=== PATIENT | female | born 1995 | race Caucasian/White ===

== ENCOUNTER 2023-10-10 03:12 | Inpatient (IN) ==
[2023-10-10] MEDS ORDERED: LIDOCAINE 1% LOCAL 20 ML VIAL INFIL PRN (03:56)
[2023-10-10] MEDS: LACTATED RINGER'S 1,000 ML IV PRN (04:05)
--- NOTE | 2023-10-10 04:25 | History & Physical Report ---
Date of Service October 10, 2023 Assessment & Plan (1) Normal labor: Plan: IUP at term in labor GBS-negative requesting epidural analgesia anticipate vaginal History of Present Illness Primary Care Provider: NO PCP Patient is a 28 yo EDC 10/20/23 who presents at 39 3/7 weeks with regular contractions since 0200 this morning. (-)SPROM (-) GBS otherwise uncomplicated. Allergies Allergy/AdvReac Type Severity Reaction Status Date / Time azithromycin Allergy Nausea Verified 10/07/23 11:15 Home Medications Medication Instructions Recorded Confirmed Type vit 168-iron 27 mg-folic cap PO 05/15/23 10/07/23 History acid 800 mcg-omega3 235 mg capsule (One-A-Day -1) RSV vac, preF A and preF B(PF) 120 0.5 ml IM ONCE #1 ea 09/04/23 10/07/23 Rx mcg/0.5 mL IM solution (Abrysvo) Patient History Surgical History S/P LEEP of cervix Family History (Updated 05/15/23 @ 10:57 by Edie Hanson) Aunt Breast cancer Father Diabetes Hypertension Grandfather Lymphoma Social History (Updated 05/15/23 @ 10:58 by Edie Hanson) Smoking Status: Never smoker Do You Dip or Chew Tobacco: No; Hx Alcohol Use: No Hx Substance Use: Yes Last Used Substance Other:: 11/2022 Preferred Language: Sami Communication Ability: Effective Roof Bolter Operator Required: No Beliefs That Will Affect Care: None marital status: marital status details: Alverto (29) [phone] Current Living Situation: Spouse Current Living Situation Comment: lives with spouse, 1 dog. current occupational status: employed current occupation: Account management Other Information That Helps Us Care for You: No Feels Safe at Home: Yes Safety Concerns: Feels Safe At This Time Assistive Devices: None Review of Systems All systems reviewed & are unremarkable except as noted in HPI & below Physical Exam Constitutional: WD/WN, vitals as above Psychiatric: A+Ox3, euthymic affect Genitourinary: Manual OB Exam: + cervical dilation 5 cm, + cervical effacement 100% and + station -1 OB Exam Monitor Tracing: + external FHT monitor used, + external uterine monitor used, + category I and + normal FHT variability Results & Data Vital Signs (Past 12 Hours) Vital Signs Temp Pulse Resp BP 10/10/23 03:29 97.9 F 20 10/10/23 03:27 93 H 114/75 Code Status & VTE Plan VTE Prophylaxis Plan VTE Prophylaxis will be ordered: No Coding Level of Care Code None Diagnoses Normal labor O80; Z37.9
[2023-10-10 05:21] LABS: Hematocrit (blood only) 37.1 % (37.0-47.0); Hemoglobin 13.2 g/dl (12.0-16.0); Mean Corpuscular Hemoglobin 30.6 pg (25.0-34.0); Mean Corpuscular Hgb Conc 35.6 g/dL (32.0-36.0); Mean Corpuscular Volume 86.1 fL (80.0-100.0); Mean Platelet Volume 10.6 fL (9.4-12.4); Platelet Count 253 K/uL (130-400); RDW Coefficient of Variation 12.4 % (11.5-14.5); RDW Standard Deviation 38.6 fL (36.4-46.3); Red Blood Count 4.31 M/uL (4.20-5.40); White Blood Count 13.35 K/ul (4.8-10.8)
[2023-10-10] MEDS ORDERED: BUPIVACAINE 0.25% PF 30 ML VIAL EPI PRN (05:33)
[2023-10-10] MEDS ORDERED: fentaNYL citrate PF 100 MCG/2 ML VIAL EPI PRN (05:33)
[2023-10-10] MEDS ORDERED: diphenhydrAMINE 50 MG/ML VIAL IV PRN (05:33)
[2023-10-10] MEDS ORDERED: NALBUPHINE HCL 5 MG in SYRINGE 0 ML IV PRN (05:33)
[2023-10-10] MEDS ORDERED: LIDOCAINE 2% MPF LOCAL 5 ML VIAL EPI PRN (05:33)
[2023-10-10] MEDS ORDERED: ROPIVACAINE 0.5% PF 5 MG/ML 20 ML VIAL EPI PRN (05:33)
[2023-10-10] MEDS ORDERED: NALOXONE HCL 0.4 MG/1 ML VIAL/CARP IV PRN (05:33)
[2023-10-10] MEDS ORDERED: NALOXONE HCL 1 MG in SODIUM CHLORIDE 0.9% 1,000 ML IV PRN (05:33)
[2023-10-10] MEDS ORDERED: fentANYL 2 MCG/ML BUPIVacaine 0.125%-NSS 100ML BAG EPI PRN (05:33)
[2023-10-10] MEDS ORDERED: SODIUM CHLORIDE 0.9% PF INJ 10 ML VIAL EPI PRN (05:33)
--- NOTE | 2023-10-10 05:37 | Anesthesiology Consultation ---
Date of Service October 10, 2023 Assessment & Plan Chart Review Chart Review: Patient NOT seen in Pre Admission Testing and Acceptable Risk for Labor Epidural Consults Requested none ASA ASA2 Proposed Anesthesia Anesthesia Type: Labor Epidural Risk / Benefits Reviewed With: PT / POA / Parent / Guardian, Accepts Plan and Informed Consent Obtained History Height/Weight Height: 5 ft 5 in Weight: 91.626 kg Allergies Allergy/AdvReac Type Severity Reaction Status Date / Time azithromycin Allergy Nausea Verified 10/07/23 11:15 Medications Home Medications Medication Instructions Recorded Confirmed Last Taken vit 168-iron 27 mg-folic cap PO 05/15/23 10/07/23 Unknown acid 800 mcg-omega3 235 mg capsule (One-A-Day -1) RSV vac, preF A and preF B(PF) 120 0.5 ml IM ONCE #1 ea 09/04/23 10/07/23 Unknown mcg/0.5 mL IM solution (Abrysvo) Active Medications Generic Name Dose Route Start Last Admin Trade Name Freq PRN Reason Stop Dose Admin Lactated Ringer's 1,000 mls @ 125 mls/hr 10/10/23 03:56 10/10/23 05:14 Lr IV 10/12/23 03:55 125 mls/hr .Q8H PRN Administration L&D Protocol Protocol NPO Date Last Intake of Fluids: 10/10/23 Time Last Intake of Fluids: 04:00 Date Last Intake of Solids: 10/09/23 Time Last Intake of Solids: 18:00 Exercise / Class Metabolic Activity II 4-5 Yardwork/Stairs/Walk up hill Past Family History Family History Aunt Breast cancer Father Diabetes Hypertension Grandfather Lymphoma Past Surgical History Surgical History S/P LEEP of cervix Past Anesthesia History No Hx of Anesthesia Complications and No Family Hx of Anesthesia Complications History of PONV No Hx of Motion Sickness and History of PONV Social History Smoking Status: Never smoker Do You Dip or Chew Tobacco: No Hx Alcohol Use: No Hx Substance Use: Yes substance use type: marijuana Last Used Substance Other:: 11/2022 Review of Systems ROS Unobtainable: All systems reviewed & are unremarkable except as noted in HPI & below Physical Exam Vital Signs Last Vital Signs Temp 36.6 C 10/10/23 03:29 Pulse 91 H 10/10/23 05:34 Resp 20 10/10/23 03:29 BP 121/73 10/10/23 05:04 Pulse Ox 100 10/10/23 05:34 ENMT Mouth: no TMJ abnormality Thyromental Distance: > or= 3.5 Finger Breadths Mallampati Class: II Neck normal visual inspection and trachea midline; neck extension not limited Respiratory normal respiratory effort Auscultation: lungs clear to auscultation bilaterally Cardiovascular Rate/Rhythm: regular rate and regular rhythm Heart Sounds: no murmur Musculoskeletal Spine: normal cervical ROM Extremities: full ROM of extremities Neurologic moves all extremities Psychiatric Orientation: alert and oriented x 3 Testing Laboratory Results 10/10/23 04:32
[2023-10-10] MEDS: fentANYL 2 MCG/ML BUPIVacaine 0.125%-NSS 100ML BAG ONE (05:48)
[2023-10-10] MEDS: LIDOCAINE 2%/EPINEPHRINE 1:200,000 20 ML PF ONE (05:49)
[2023-10-10] MEDS: BUPIVACAINE 0.25% PF 30 ML VIAL ONE (05:51)
[2023-10-10] MEDS: fentaNYL citrate PF 100 MCG/2 ML VIAL ONE (05:51)
[2023-10-10] MEDS: SODIUM CHLORIDE 0.9% PF INJ 10 ML VIAL ONE (05:53)
[2023-10-10] MEDS: ePHEDrine sulfate 50 MG/ML AMP ONE (05:53)
[2023-10-10] MEDS: LIDOCAINE 2%/EPINEPHRINE 1:200,000 20 ML PF EPI STA (06:05)
[2023-10-10] MEDS: BUPIVACAINE 0.25% PF 30 ML VIAL EPI STA (06:05)
[2023-10-10] MEDS: fentaNYL citrate PF 100 MCG/2 ML VIAL EPI STA (06:05)
[2023-10-10] MEDS: SODIUM CHLORIDE 0.9% PF INJ 10 ML VIAL EPI STA (06:06)
[2023-10-10] MEDS: ePHEDrine sulfate 50 MG/ML AMP IV PRN (06:20)
[2023-10-10] MEDS: OXYTOCIN 30 UNITS/NSS 30 UNITS/500 ML BAG IV PRN (08:19)
[2023-10-10] MEDS ORDERED: DIPHTHER/TETAN/PERTUS Vaccine (Tdap, Adol/Adult) 0.5mL IM ONE (08:59)
[2023-10-10] MEDS ORDERED: ACETAMINOPHEN 325 MG TAB PO PRN (08:59)
[2023-10-10] MEDS ORDERED: HYDROCORTISONE ACETATE 25 MG SUPP PR PRN (08:59)
[2023-10-10] MEDS ORDERED: bisacodyL 10 MG SUPP PR PRN (08:59)
[2023-10-10] MEDS ORDERED: OXYTOCIN 30 UNITS/NSS 30 UNITS/500 ML BAG IV PRN (08:59)
[2023-10-10] MEDS ORDERED: MEASLES, MUMPS & RUBELLA VIRUS VACCINE (MMR) VIAL SQ ONE (08:59)
--- NOTE | 2023-10-10 09:50 | Delivery Summary ---
Vaginal Delivery Summary Date of Service October 10, 2023 Vaginal Delivery Summary and 2nd Degree LAC Patient is a 28-year-old G1, P0 female EDC of 10/14/2023 who presents at 39-3/7 weeks in active labor. She requested epidural analgesia which was effective. She progressed to full dilation and pushed effectively over intact perineum for delivery of a viable male infant. After the head was delivered the rest the delivered without maternal effort. He was placed on mother's abdomen for further attention and drying. After 1 minute, cord was clamped and cut. The placenta was then expressed intact after obtaining cord blood sample. bleeding was controlled with dilute Pitocin and fundal massage. A second-degree perineal laceration was repaired with 3-0 chromic in the usual fashion. EBL was 350 cc. Mother and were doing well after delivery. [facility] [place]ag[place] Delivery Charge Delivery Type Details: and 2nd Degree LAC
--- NOTE | 2023-10-10 10:10 | Anesthesia Procedure Note ---
Date of Service October 10, 2023 Anesthesia Post Epidural Note Vital Signs Vital Signs: Temp Pulse Resp BP Pulse Ox O2 Del Method 36.8 C 99 H 20 115/57 L 96 Room Air 10/10/23 07:08 10/10/23 10:06 10/10/23 09:10 10/10/23 10:06 10/10/23 08:14 10/10/23 07:13 Pain Intensity Abdomen: Pain Intensity: 0 Notes Mental Status: alert / awake / arousable and participated in evaluation Patient Amnestic to Procedure: No Nausea / Vomiting: adequately controlled Pain: adequately controlled Airway Patency, RR, SpO2: stable & adequate BP & HR: stable & adequate Hydration State: stable & adequate Neuraxial Anesthesia: was administered and sensory block is resolving Anesthetic Complications: no major complications apparent and Pt Satisfied with anesthetic care Epidural: Removed without complications and With tip intact
[2023-10-10] MEDS: IBUPROFEN 600 MG TAB PO PRN (16:21)
[2023-10-10] MEDS: BENZOCAINE 20% SPRY 85 APPLN/85 GM CAN EXT PRN (18:52)
[2023-10-10] MEDS: DOCUSATE SODIUM 100 MG CAP PO SCH (20:49)
--- NOTE | 2023-10-11 06:46 | Obstetrical Progress Note ---
Date of Service October 11, 2023 Assessment & Plan (1) care and examination: Plan: Doing well encourage ambulation anticipate dc today Admission and Anticipated Discharge Date Admission Date: October 10, 2023 Supervising Physician Co-Signing Physician Notes Resident Physician Supervision Note: I interviewed and examined the patient. Discussed with Dr. Guevara and agree with findings and plan as documented in the note. Any exceptions or clarifications are listed here: Doing well. Desires d/c today. Discussed that if all goes well today as a G1and breast feeding, can consider d/c later today. Documented By: Maria Del Carmen Herman MD, FACOG Subjective 29 yo post day 1 s/p Ambulation: ambulating normally Voiding: no voiding problems Passing Gas:: Yes Diet Tolerance:: regular diet Lochia:: Small Feeding Type:: breast feeding Current Pain Level: minimal Resting comfortably this AM in NAD. Denies CRAWLEY, CP, SOB, N/V/D, LE pain/swelling. Desires dc today Review of Systems Review of Systems: reviewed, per HPI Physical Exam Physical Exam: General: patient resting comfortably, NAD, non-toxic in appearance, answers questions appropriately. Skin: warm, dry, intact HEENT: NC/AT, anicteric sclera, conjunctiva without injection, moist mucus membranes. Heart: +S1/S2, regular, no m/r/g Lungs: equal air entry bilaterally, no rales/rhonchi/wheezes Abd: +BS, soft, NT/ND, uterine fundus firm at umbilicus Ext: warm, no clubbing/cyanosis or edema, Lynn's neg. Neuro: nonfocal, speech intact, no facial droop, moving all extremities on command. Results & Data Vital Signs (Past 12 Hours) Vital Signs Temp Pulse Resp BP Pulse Ox O2 Del Method 10/11/23 04:33 36.7 C 81 16 112/77 97 Room Air 10/10/23 23:55 36.7 C 78 16 121/80 94 Room Air 10/10/23 18:59 36.7 C 88 16 112/72 96 Room Air Resident Activity Tracking Resident Involvement: Resident Care Provided Care Provided: Adult Hospital Medicine
[2023-10-11] MEDS: FERROUS SULFATE 325 MG TAB PO SCH (09:03)
[2023-10-11] MEDS: PRENATAL VITAMIN 1 TAB PO SCH (09:03)
[2023-10-11] MEDS: MEASLES, MUMPS & RUBELLA VIRUS VACCINE (MMR) VIAL ONE (15:55)
[2023-10-11] MEDS ORDERED: bisacodyL 5 MG TABEC PO SCH (20:00)
== END 2023-10-11 16:50 | disposition home or self-care (01) | DRG 807 ==
LOC: OPB 03:12 → 4S1 03:14 → 4E2 11:00